=== PATIENT | female | born 1995 | race Caucasian/White ===

== ENCOUNTER 2016-08-18 15:45 | Emergency (ER) | payer BC, OTHER ==
[2016-08-18] MEDS ORDERED: ONDANSETRON 4MG/2ML VIAL (J2405) As Ordered ONE (18:12)
[2016-08-18] MEDS ORDERED: KETOROLAC 30 MG/ML VIAL (J1885) As Ordered ONE (18:12)
[2016-08-18 18:23] LABS: BASO % 0.5 % (0.0-1.0); EOS # 0.1 K/mm3 (0.0-0.50); EOS % 2.7 % (0.0-3.0); LARGE UNSTAINED CELL # 0.1 K/mm3 (0.0-0.4); LARGE UNSTAINED CELL % 1.7 % (0.0-4.0); LYMPH # 1.6 K/mm3 (1.5-6.5); MEAN CORPUSCULAR HEMOGLOBIN 29.8 pg (27.0-33.0); MEAN CORPUSCULAR HGB CONC 32.9 g/dl (32.0-36.5); MEAN CORPUSCULAR VOLUME 90.4 fl (80.0-96.0); MONO # 0.3 K/mm3 (0.0-0.8); MONO % 5.2 % (0.0-5.0); NEUTROPHILS # 3.2 K/mm3 (1.8-7.7); NEUTROPHILS % 59.9 % (36.0-66.0); PLATELET COUNT, AUTOMATED 167 k/mm3 (150-450); RED CELL DISTRIBUTION WIDTH 12.3 % (11.5-14.5); WHITE BLOOD COUNT 5.3 K/mm3 (4.0-10.0)
[2016-08-18 18:29] LABS: INR 0.86
[2016-08-18 18:44] LABS: CONTROL LINE HCG INT CTR LINE PRESENT
[2016-08-18 18:51] LABS: ALBUMIN 4.2 GM/DL (3.2-5.2); ALBUMIN/GLOBULIN RATIO 1.27 (1.00-1.93); ALKALINE PHOSPHATASE 89 U/L (45-117); ALT/SGPT 31 U/L (12-78); AMYLASE 74 U/L (25-115); ANION GAP 9 MEQ/L (8-16); AST/SGOT 24 U/L (15-37); BILIRUBIN,DIRECT < 0.1 MG/DL (0.0-0.2); BILIRUBIN,TOTAL 0.2 MG/DL (0.2-1.0); BLOOD UREA NITROGEN 17 MG/DL (7-18); CARBON DIOXIDE LEVEL 29 MEQ/L (21-32); CHLORIDE LEVEL 104 MEQ/L (98-107); CREATININE FOR GFR 0.83 MG/DL (0.55-1.02); GLUCOSE, FASTING 86 MG/DL (70-105); POTASSIUM SERUM 3.7 MEQ/L (3.5-5.1); SODIUM LEVEL 142 MEQ/L (136-145); TOTAL PROTEIN 7.5 GM/DL (6.4-8.2)
[2016-08-18] MEDS ORDERED: METOCLOPRAMIDE INJ 10MG/2ML VIAL (J2765) As Ordered ONE (19:12)
--- NOTE | 2016-08-18 19:16 | REP ---
CT of the brain without IV contrast: There are no comparisons. There is no hemorrhage. There is no edema, mass effect or midline shift. Ventricles are normal size and midline. There is mild mucosal thickening in the ethmoid sinuses. The visualized paranasal sinuses are otherwise unremarkable. Impression: Negative CT scan of the brain. There is evidence for mild ethmoid sinusitis. Signed by Amanuel Clinton MD 08/18/2016 07:07 P
--- NOTE | 2016-08-18 19:39 | REP ---
CT abdomen pelvis without IV or bowel contrast for renal colic: There are no comparison studies. There is no hydronephrosis or perinephric stranding. There are no renal, ureteral or bladder calculi. The visualized lung mast are unremarkable. The unenhanced hepatic parenchyma, gallbladder, pancreas and spleen are unremarkable. The adrenals, abdominal aorta, bowel and mesentery are unremarkable. Pelvis: The appendix is unremarkable. There is no ascites or adenopathy. The uterus and adnexa are unremarkable. The pelvic bowel loops are unremarkable. Impression: Essentially negative CT study of the abdomen and pelvis. Signed by Amanuel Clinton MD 08/18/2016 07:30 P
--- NOTE | 2016-08-18 20:33 | EDDOCDS ---
Nurse's Notes [facility] Name: Cathryn Swenson Age: 20 yrs Sex: Female : 1995 Arrival Date: 08/18/2016 Time: 15:45 Bed I1 / M1 Private MD: NO PRIMARY PHYSICIAN, . Diagnosis: Abdominal and pelvic pain Presentation: 08/18 16:04 Presenting complaint: Patient states: last night was getting woken up from sleep due to hs1 pain in left side. Passed out in car on way here per bystander. Diarrhea also a complaint for 3 days. Adult Sepsis Screening: The patient does not have new or worsening altered mentation. Patient's respiratory rate is less than 22. Systolic blood pressure is greater than 100. Patient has a qSOFA score of 0- Negative Sepsis Screen. Suicide/Homicide risk assessment- the patient denies having any suicidal and/or homicidal ideations and does not present with any other emotional, behavioral or mental health complaints. Status: The patient is a dependent. Transition of care: patient was not received from another setting of care. 16:04 Acuity: CONOR Level 3 hs1 16:04 Method Of Arrival: Walkin/Carried/Asstd hs1 Triage Assessment: 16:07 General: Appears in no apparent distress, Behavior is appropriate for age, cooperative. hs1 Pain: Location: scalp, anterior aspect of left lateral abdomen and abdomen diffusely Pain currently is 10 out of 10 on a pain scale. Pt Declines HIV testing. Neurological: Level of Consciousness is awake, alert, obeys commands. Respiratory: No deficits noted. Derm: No deficits noted. 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 none - PMHx: none; - Social history: Smoking status: Patient uses tobacco products, heavy tobacco smoker. No barriers to communication noted, The patient speaks fluent Palauan, Speaks appropriately for age. - Family history: Not pertinent. - : The pt / caregiver states he / she is not on anticoagulants. Home medication list is obtained from the patient. - Exposure Risk Screening:: None identified. Screenin:17 Screening information is obtained from the patient. Fall risk: No risks identified. ck1 Assistance ADL's: requires no assistance with activities of daily living. Abuse/DV Screen: The patient / caregiver reports he/she is: not in a situation that causes fear, pain or injury. Nutritional screening: No deficits noted. Advance Directives: Currently, there is no health care proxy. home support is adequate. Assessment: 18:17 General: Appears in no apparent distress, comfortable, Behavior is appropriate for age, ck1 cooperative. Pain: Location: left lower quadrant Pain currently is 8 out of 10 on a pain scale. Pain radiates to left flank. Neurological: Level of Consciousness is awake, alert, obeys commands, Oriented to person, place, time. Cardiovascular: Rhythm is regular Chest pain is denied. Respiratory: Respiratory effort is unlabored, Respiratory pattern is regular, symmetrical. GI: Reports diarrhea, Denies nausea, vomiting. Derm: Skin is intact, is healthy with good turgor, Skin is pink, warm & dry. 19:17 General: Appears in no apparent distress, comfortable, Behavior is cooperative, pt mlc watching tv. Pain: Pain currently is 9 out of 10 on a pain scale. Neurological: Level of Consciousness is awake, alert, Oriented to person, place, time, Reports headache. Respiratory: Airway is patent Respiratory effort is even, unlabored, Respiratory pattern is regular. GI: Abdomen is non- distended Bowel sounds present X 4 quads. Abd is soft and non tender X 4 quads. Derm: Skin is pink, warm & dry. 19:56 Reassessment: Patient appears in no apparent distress at this time. Patient states mlc symptoms have not improved. pt reports "pressure" on top of her head, rated 8/10. General: pt asking for IV to be taken out, pt advised against this. pillow placed under arm to relieve discomfort. . 20:30 General: Appears in no apparent distress, comfortable, Behavior is cooperative. Pain: mlc Pain currently is 8 out of 10 on a pain scale. Neurological: Level of Consciousness is awake, alert, Oriented to person, place, time. Respiratory: Airway is patent Respiratory effort is even, unlabored, Respiratory pattern is regular. Derm: Skin is pink, warm & dry. Vital Signs: 15:46 BP 135 / 72; Pulse 89; Resp 18; Temp 98.0; Pulse Ox 99% ; Weight 79.38 kg; Height 5 ft. elp 7 in. (170.18 cm); 20:30 BP 124 / 80; Pulse 70; Resp 18; Temp 96.6(T); Pulse Ox 99% on R/A; Pain 8/10; mlc 15:46 Body Mass Index 27.41 (79.38 kg, 170.18 cm) elp Vitals: 15:46 Log In Time: August 18, 2016 at 15:32. elp 18:19 Glucose Measurement D-stick deferred by provider. ck1 ED Course: 15:45 Patient visited by Jonna Palafox PCA. elp 15:45 Patient moved to Waiting elp 15:46 NO PRIMARY PHYSICIAN, . is Private Physician. elp 15:47 Patient visited by Jonna Palafox PCA. elp 15:47 Patient moved to Pre RCE elp 16:06 Triage Initiated hs1 17:14 Patient moved to Triage 2 dem1 17:17 Patient visited by Tejal Segundo RN. mk4 18:00 [facility] ke 18:00 Patient visited by Vazquez Aparicio FNP. ke 18:00 Patient visited by Vazquez Aparicio FNP. ke 18:08 Patient moved to I1 / M1 mk4 18:11 Urinalysis Sent. dem1 18:11 Urine Culture Sent. dem1 18:17 The patient / caregiver is instructed regarding the plan of care and ED course. ck1 18:17 Amylase Sent. ck1 18:17 Basic Metabolic Profile Sent. ck1 18:17 CBC with Diff Sent. ck1 18:17 HCG,Serum Qualitative Sent. ck1 18:17 Lipase Sent. ck1 18:17 Liver Profile Sent. ck1 18:17 Prothrombin Time Profile\\E\\INR Sent. ck1 18:17 Inserted saline lock: 20 gauge in right antecubital area and blood collected. The ck1 patient tolerated the procedure well. 18:30 Patient visited by Denia Beckham RN. ck1 18:55 Patient visited by Vazquez Aparicio FNP. ke 19:17 [facility] Payment Agreement was scanned into [employer] and attached to record. zo 19:18 Patient visited by Brittani Hodge,YOLIS. mlc 19:58 Patient visited by Brittani Hodge,YOLIS. mlc 20:05 CT Head Without Contrast Returned. EDMS 20:05 CT ABD & PELVIS: No Contrast Returned. EDMS 20:14 [facility] is Referral Physician. ke 20:30 Discontinued IV lock intact, bleeding controlled, pressure dressing applied, No mlc redness/swelling at site. No procedures done that require assistance. Administered Medications: 18:19 Drug: NS 0.9% 1000 ml [sodium chloride 0.9 % intravenous solution] Route: IV; Rate: 100 mcp mL/hr; Site: right antecubital; 18:19 Drug: Ondansetron 4 mg [ondansetron HCl 2 mg/mL intravenous solution (2 mL)] Route: mcp IVP; Site: right antecubital; 18:19 Drug: ketorolac 30 mg [ketorolac 30 mg/mL (1 mL) injection solution (1 mL)] Route: IVP; mcp Site: right antecubital; 19:17 Drug: Metoclopramide 10 mg [metoclopramide 5 mg/mL injection solution] Route: IV; Rate: mlc 40 mg/hr; Infused Over: 15 mins; Site: right antecubital; Order Results: Lab Order: Amylase; SPEC'M 08/18/16 18:16 Test: AMYLASE; Value: 74; Range: 25-115; Units: U/L; Status: F Lab Order: Basic Metabolic Profile; SPEC'M 08/18/16 18:16 Test: GLUCOSE, FASTING; Value: 86; Range: 70-105; Units: MG/DL; Status: F Test: BLOOD UREA NITROGEN; Value: 17; Range: 7-18; Units: MG/DL; Status: F Test: CREATININE FOR GFR; Value: 0.83; Range: 0.55-1.02; Units: MG/DL; Status: F Test: SODIUM LEVEL; Value: 142; Range: 136-145; Units: MEQ/L; Status: F Test: POTASSIUM SERUM; Value: 3.7; Range: 3.5-5.1; Units: MEQ/L; Status: F Test: CHLORIDE LEVEL; Value: 104; Range: 98-107; Units: MEQ/L; Status: F Test: CARBON DIOXIDE LEVEL; Value: 29; Range: 21-32; Units: MEQ/L; Status: F Test: ANION GAP; Value: 9; Range: 8-16; Units: MEQ/L; Status: F Test: CALCIUM LEVEL; Value: 9.0; Range: 8.5-10.1; Units: MG/DL; Status: F Lab Order: CBC with Diff; SPEC'M 08/18/16 18:16 Test: WHITE BLOOD COUNT; Value: 5.3; Range: 4.0-10.0; Units: K/mm3; Status: F Test: RED BLOOD COUNT; Value: 4.57; Range: 4.00-5.40; Units: M/mm3; Status: F Test: HEMOGLOBIN; Value: 13.6; Range: 12.0-16.0; Units: g/dl; Status: F Test: HEMATOCRIT; Value: 41.3; Range: 36.0-47.0; Units: %; Status: F Test: MEAN CORPUSCULAR VOLUME; Value: 90.4; Range: 80.0-96.0; Units: fl; Status: F Test: MEAN CORPUSCULAR HEMOGLOBIN; Value: 29.8; Range: 27.0-33.0; Units: pg; Status: F Test: MEAN CORPUSCULAR HGB CONC; Value: 32.9; Range: 32.0-36.5; Units: g/dl; Status: F Test: RED CELL DISTRIBUTION WIDTH; Value: 12.3; Range: 11.5-14.5; Units: %; Status: F Test: PLATELET COUNT, AUTOMATED; Value: 167; Range: 150-450; Units: k/mm3; Status: F Test: NEUTROPHILS %; Value: 59.9; Range: 36.0-66.0; Units: %; Status: F Test: LYMPH %; Value: 30.0; Range: 24.0-44.0; Units: %; Status: F Test: MONO %; Value: 5.2; Range: 0.0-5.0; Abnormal: Above high normal; Units: %; Status: F Test: EOS %; Value: 2.7; Range: 0.0-3.0; Units: %; Status: F Test: BASO %; Value: 0.5; Range: 0.0-1.0; Units: %; Status: F Test: LARGE UNSTAINED CELL %; Value: 1.7; Range: 0.0-4.0; Units: %; Status: F Test: NEUTROPHILS #; Value: 3.2; Range: 1.8-7.7; Units: K/mm3; Status: F Test: LYMPH #; Value: 1.6; Range: 1.5-6.5; Units: K/mm3; Status: F Test: MONO #; Value: 0.3; Range: 0.0-0.8; Units: K/mm3; Status: F Test: EOS #; Value: 0.1; Range: 0.0-0.50; Units: K/mm3; Status: F Test: BASO #; Value: 0.0; Range: 0.0-0.2; Units: K/mm3; Status: F Test: LARGE UNSTAINED CELL #; Value: 0.1; Range: 0.0-0.4; Units: K/mm3; Status: F Lab Order: HCG,Serum Qualitative; [facility] 08/18/16 18:16 Test: HCG, SERUM QUALITATIVE; Value: NEGATIVE; Range: NEGATIVE; Status: F Lab Order: Lipase; [facility] 08/18/16 18:16 Test: LIPASE; Value: 150; Range: 73-393; Units: U/L; Status: F Lab Order: Liver Profile; [facility] 08/18/16 18:16 Test: AST/SGOT; Value: 24; Range: 15-37; Units: U/L; Status: F Test: ALT/SGPT; Value: 31; Range: 12-78; Units: U/L; Status: F Test: ALKALINE PHOSPHATASE; Value: 89; Range: 45-117; Units: U/L; Status: F Test: BILIRUBIN,TOTAL; Value: 0.2; Range: 0.2-1.0; Units: MG/DL; Status: F Test: BILIRUBIN,DIRECT; Value: < 0.1; Range: 0.0-0.2; Units: MG/DL; Status: F Test: TOTAL PROTEIN; Value: 7.5; Range: 6.4-8.2; Units: GM/DL; Status: F Test: ALBUMIN; Value: 4.2; Range: 3.2-5.2; Units: GM/DL; Status: F Test: ALBUMIN/GLOBULIN RATIO; Value: 1.27; Range: 1.00-1.93; Status: F Lab Order: Prothrombin Time Profile\\E\\INR; [facility] 08/18/16 18:16 Test: PROTHROMBIN TIME; Value: 11.8; Range: 12.3-14.5; Abnormal: Below low normal; Units: SECONDS; Status: F Test: INR; Value: 0.86; Status: F Test Note: ; THERAPUTIC HUMAN INR VALUES INDICATIONS NORMAL RANGES PROPHYLAXIS/TREATMENT OF: VENOUS THROMBOSIS 2.0-3.0 PULMONARY EMBOLISM 2.0-3.0 PREVENTION OF SYSTEMIC EMBOLISM FROM: TISSUE HEART VALVES 2.0-3.0 ACUTE MYOCARDIAL INFARCTION 2.0-3.0 VALVULAR HEART DISEASE 2.0-3.0 ATRIAL FIBRILLATION 2.0-3.0 MECHANICAL VALVES(HIGH RISK) 2.5-3.5 RECURRENT MYOCARDIAL INFARCTION 2.5-3.5 Lab Order: Urinalysis; SPEC'M 08/18/16 17:15 Test: APPEARANCE, URINE; Value: CLEAR; Range: CLEAR; Status: F Test: COLOR, URINE; Value: YELLOW; Range: YELLOW; Status: F Test: PH,URINE; Value: 6.0; Range: 5.0-9.0; Units: UNITS; Status: F Test: SPECIFIC GRAVITY URINE AUTO; Value: 1.018; Range: 1.002-1.035; Status: F Test: PROTEIN, URINE AUTO; Value: NEGATIVE; Range: NEGATIVE; Units: mg/dL; Status: F Test: GLUCOSE, URINE (UA) AUTO; Value: NEGATIVE; Range: NEGATIVE; Units: mg/dL; Status: F Test: KETONE, URINE AUTO; Value: NEGATIVE; Range: NEGATIVE; Units: mg/dL; Status: F Test: UROBILINOGEN, URINE AUTO; Value: 0.2; Range: 0.0-2.0; Units: mg/dL; Status: F Test: BILIRUBIN, URINE AUTO; Value: NEGATIVE; Range: NEGATIVE; Status: F Test: NITRITE, URINE AUTO; Value: NEGATIVE; Range: NEGATIVE; Status: F Test: LEUKOCYTE ESTERASE, URINE AUTO; Value: NEGATIVE; Range: NEGATIVE; Status: F Test: BLOOD, URINE BLOOD; Value: 1+; Range: NEGATIVE; Abnormal: Above high normal; Status: F Test: WBC, URINE AUTO; Value: 0; Range: 0-3; Units: /HPF; Status: F Test: RBC, URINE AUTO; Value: 0; Range: 0-3; Units: /HPF; Status: F Test: BACTERIA, URINE AUTO; Value: NEGATIVE; Range: NEGATIVE; Status: F Test: SQUAMOUS EPITHELIAL CELL UR AU; Value: 0; Range: 0-6; Units: /HPF; Status: F Test: MUCUS, URINE; Value: SMALL; Range: NEGATIVE; Status: F Test: HYALINE CAST, URINE AUTO; Value: 0; Range: 0-1; Units: /LPF; Status: F Radiology Order: CT ABD & PELVIS: No Contrast Test: CT ABD & PELVIS: No Contrast REASON FOR EXAMINATION: Renal colic; CT abdomen pelvis without IV or bowel contrast for renal colic:; ; There are no comparison studies.; ; There is no hydronephrosis or perinephric stranding. There are no renal,; ureteral or bladder calculi.; ; The visualized lung mast are unremarkable.; ; The unenhanced hepatic parenchyma, gallbladder, pancreas and spleen are; unremarkable. The adrenals, abdominal aorta, bowel and mesentery are; unremarkable.; ; Pelvis:; ; The appendix is unremarkable. There is no ascites or adenopathy. The uterus and; adnexa are unremarkable. The pelvic bowel loops are unremarkable.; ; Impression:; ; Essentially negative CT study of the abdomen and pelvis.; ; ; Signed by; Amanuel Clinton MD 08/18/2016 07:30 P; Radiology Order: CT Head Without Contrast Test: CT Head Without Contrast REASON FOR EXAMINATION: waters; CT of the brain without IV contrast:; ; There are no comparisons.; ; There is no hemorrhage. There is no edema, mass effect or midline shift.; Ventricles are normal size and midline.; ; There is mild mucosal thickening in the ethmoid sinuses. The visualized; paranasal sinuses are otherwise unremarkable.; ; Impression:; ; Negative CT scan of the brain. There is evidence for mild ethmoid sinusitis.; ; ; Signed by; Amanuel Clinton MD 08/18/2016 07:07 P; Outcome: 19:17 CT Study completed. mlc 20:14 Discharge ordered by Provider. ke 20:30 Discharge Assessment: Patient awake, alert and oriented x 3. No cognitive and/or mlc functional deficits noted. Patient verbalized understanding of disposition instructions. patient administered narcotics - no. The following High Risk Discharge criteria are identified: None. Discharged to home ambulatory, with significant other. Condition: good Condition: stable. Discharge instructions given to patient, Instructed on discharge instructions, follow up and referral plans. medication usage, Demonstrated understanding of instructions, medications, Pt was receptive of discharge instructions/ teaching. Prescriptions given X 2. Property sent home with patient. 20:32 Patient left the ED. mlc Signatures: Dispatcher [employer] EDMarlene Lux, RN RN Vazquez Chávez, MANAGER RETIREMENT MANAGER RETIREMENT Denia MayberryRN RN ck1 Eddy Gallagher Hannah RN RN hs1 Petra Reilly1 Jonna Palafox, JACQUELIN MUD ENGINEER elTejal Tristan RN RN mk4 Brittani HodgeRN RN mlc MTDD
--- NOTE | 2016-08-18 20:33 | EDDOCDS ---
Physician Documentation [facility] Name: Cathryn Swenson Age: 20 yrs Sex: Female : 1995 Arrival Date: 08/18/2016 Time: 15:45 Bed I1 / M1 Private MD: NO PRIMARY PHYSICIAN, . Disposition: 08/18/16 20:14 Discharged to Home/Self Care. Impression: Abdominal and pelvic pain. - Condition is Stable. - Discharge Instructions: Abdominal Pain, Adult. - Prescriptions for Naprosyn 500 mg Oral Tablet - take 1 tablet by ORAL route 2 times per day take with food; 30 tablet. Zofran 4 mg Oral Tablet - take 1 tablet by ORAL route 4 times per day As needed; 10 tablet. - Medication Reconciliation, Local Pharmacy Hours form. - [facility] up: [facility]; When: Call to arrange an appointment; Reason: Recheck today's complaints, Continuance of care. - Problem is an ongoing problem. - Symptoms are unchanged. Historical: - Allergies: no known allergies; - Home Meds: 1. none - PMHx: none; - Social history: Smoking status: Patient uses tobacco products, heavy tobacco smoker. No barriers to communication noted, The patient speaks fluent [place], Speaks appropriately for age. - Family history: Not pertinent. - : The pt / caregiver states he / she is not on anticoagulants. Home medication list is obtained from the patient. - Exposure Risk Screening:: None identified. 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 7 in. (170.18 cm); 20:30 BP 124 / 80; Pulse 70; Resp 18; Temp 96.6(T); Pulse Ox 99% on R/A; Pain 8/10; mlc 15:46 Body Mass Index 27.41 (79.38 kg, 170.18 cm) elp MDM: 18:07 NS 0.9% 1000 ml IV at 100 mL/hr continuous ordered. ke 18:07 Ondansetron 4 mg IVP once ordered. ke 18:07 ketorolac 30 mg IVP once ordered. ke 18:07 IV Saline Lock ordered. ke 18:07 Undress patient appropriately for examination ordered. ke 18:08 Amylase Ordered. EDMS 18:08 Basic Metabolic Profile Ordered. EDMS 18:08 CBC with Diff Ordered. EDMS 18:08 HCG,Serum Qualitative Ordered. EDMS 18:08 Lipase Ordered. EDMS 18:08 Liver Profile Ordered. EDMS 18:08 Prothrombin Time Profile\E\INR Ordered. EDMS 18:08 Urinalysis Ordered. EDMS 18:08 Urine Culture Ordered. EDMS 18:09 CT ABD & PELVIS: No Contrast Ordered. EDMS 18:09 NOTHING BY MOUTH+DIET ordered. EDMS 18:49 Financial registration complete. zo 18:53 CBC with Diff Reviewed. ke 18:53 Prothrombin Time Profile\E\INR Reviewed. ke 18:53 Urinalysis Reviewed. ke 18:53 Amylase Reviewed. ke 18:53 Basic Metabolic Profile Reviewed. ke 18:53 HCG,Serum Qualitative Reviewed. ke 18:53 Lipase Reviewed. ke 18:53 Liver Profile Reviewed. ke 18:55 Metoclopramide 10 mg IV at 40 mg/hr once over 15 mins ordered. ke 18:57 CT Head Without Contrast Ordered. EDMS 19:17 [facility] Payment Agreement was scanned into [employer] and attached to record. zo Administered Medications: 18:19 Drug: NS 0.9% 1000 ml [sodium chloride 0.9 % intravenous solution] Route: IV; Rate: 100 mcp mL/hr; Site: right antecubital; 18:19 Drug: Ondansetron 4 mg [ondansetron HCl 2 mg/mL intravenous solution (2 mL)] Route: mcp IVP; Site: right antecubital; 18:19 Drug: ketorolac 30 mg [ketorolac 30 mg/mL (1 mL) injection solution (1 mL)] Route: IVP; [facility] Site: right antecubital; 19:17 Drug: Metoclopramide 10 mg [metoclopramide 5 mg/mL injection solution] Route: IV; Rate: mlc 40 mg/hr; Infused Over: 15 mins; Site: right antecubital; Signatures: Dispatcher [employer] EDMS Vazquez Aparicio, RESEARCH SPEC RESEARCH SPEC Denia Mayberry RN RN ck1 Eddy Gallagher Hannah, RN RN hs1 Brittani Hodge RN RN mlc Peters, Mary RN [facility] The chart was reviewed and I authenticate all verbal orders and agree with the evaluation and treatment provided.Attachments: 19:17 [facility] Payment Agreement zo MTDD
--- NOTE | 2016-08-20 21:33 | EDDOCDS ---
Nurse's Notes [facility] Name: Cathryn Swenson Age: 20 yrs Sex: Female : 1995 Arrival Date: 08/18/2016 Time: 15:45 Bed I1 / M1 Private MD: NO PRIMARY PHYSICIAN, . Diagnosis: Abdominal and pelvic pain Presentation: 08/18 16:04 Presenting complaint: Patient states: last night was getting woken up from sleep due to hs1 pain in left side. Passed out in car on way here per bystander. Diarrhea also a complaint for 3 days. Adult Sepsis Screening: The patient does not have new or worsening altered mentation. Patient's respiratory rate is less than 22. Systolic blood pressure is greater than 100. Patient has a qSOFA score of 0- Negative Sepsis Screen. Suicide/Homicide risk assessment- the patient denies having any suicidal and/or homicidal ideations and does not present with any other emotional, behavioral or mental health complaints. Status: The patient is a dependent. Transition of care: patient was not received from another setting of care. 16:04 Acuity: CONOR Level 3 hs1 16:04 Method Of Arrival: Walkin/Carried/Asstd hs1 Triage Assessment: 16:07 General: Appears in no apparent distress, Behavior is appropriate for age, cooperative. hs1 Pain: Location: scalp, anterior aspect of left lateral abdomen and abdomen diffusely Pain currently is 10 out of 10 on a pain scale. Pt Declines HIV testing. Neurological: Level of Consciousness is awake, alert, obeys commands. Respiratory: No deficits noted. Derm: No deficits noted. DIRECTOR OF CONTENT MARKETING: 16:08 LMP 08/13/2016 hs1 Historical: - Allergies: no known allergies; - Home Meds: 1. none - PMHx: none; - Social history: Smoking status: Patient uses tobacco products, heavy tobacco smoker. No barriers to communication noted, The patient speaks fluent Uruguayan, Speaks appropriately for age. - Family history: Not pertinent. - : The pt / caregiver states he / she is not on anticoagulants. Home medication list is obtained from the patient. - Exposure Risk Screening:: None identified. Screenin:17 Screening information is obtained from the patient. Fall risk: No risks identified. ck1 Assistance ADL's: requires no assistance with activities of daily living. Abuse/DV Screen: The patient / caregiver reports he/she is: not in a situation that causes fear, pain or injury. Nutritional screening: No deficits noted. Advance Directives: Currently, there is no health care proxy. home support is adequate. Assessment: 18:17 General: Appears in no apparent distress, comfortable, Behavior is appropriate for age, ck1 cooperative. Pain: Location: left lower quadrant Pain currently is 8 out of 10 on a pain scale. Pain radiates to left flank. Neurological: Level of Consciousness is awake, alert, obeys commands, Oriented to person, place, time. Cardiovascular: Rhythm is regular Chest pain is denied. Respiratory: Respiratory effort is unlabored, Respiratory pattern is regular, symmetrical. GI: Reports diarrhea, Denies nausea, vomiting. Derm: Skin is intact, is healthy with good turgor, Skin is pink, warm & dry. 19:17 General: Appears in no apparent distress, comfortable, Behavior is cooperative, pt mlc watching tv. Pain: Pain currently is 9 out of 10 on a pain scale. Neurological: Level of Consciousness is awake, alert, Oriented to person, place, time, Reports headache. Respiratory: Airway is patent Respiratory effort is even, unlabored, Respiratory pattern is regular. GI: Abdomen is non- distended Bowel sounds present X 4 quads. Abd is soft and non tender X 4 quads. Derm: Skin is pink, warm & dry. 19:56 Reassessment: Patient appears in no apparent distress at this time. Patient states mlc symptoms have not improved. pt reports "pressure" on top of her head, rated 8/10. General: pt asking for IV to be taken out, pt advised against this. pillow placed under arm to relieve discomfort. . 20:30 General: Appears in no apparent distress, comfortable, Behavior is cooperative. Pain: mlc Pain currently is 8 out of 10 on a pain scale. Neurological: Level of Consciousness is awake, alert, Oriented to person, place, time. Respiratory: Airway is patent Respiratory effort is even, unlabored, Respiratory pattern is regular. Derm: Skin is pink, warm & dry. Vital Signs: 15:46 BP 135 / 72; Pulse 89; Resp 18; Temp 98.0; Pulse Ox 99% ; Weight 79.38 kg; Height 5 ft. elp 7 in. (170.18 cm); 20:30 BP 124 / 80; Pulse 70; Resp 18; Temp 96.6(T); Pulse Ox 99% on R/A; Pain 8/10; mlc 15:46 Body Mass Index 27.41 (79.38 kg, 170.18 cm) elp Vitals: 15:46 Log In Time: August 18, 2016 at 15:32. elp 18:19 Glucose Measurement D-stick deferred by provider. ck1 ED Course: 15:45 Patient visited by Jonna Palafox PCA. elp 15:45 Patient moved to Waiting elp 15:46 NO PRIMARY PHYSICIAN, . is Private Physician. elp 15:47 Patient visited by Jonna Palafox PCA. elp 15:47 Patient moved to Pre RCE elp 16:06 Triage Initiated hs1 17:14 Patient moved to Triage 2 dem1 17:17 Patient visited by Tejal Segundo RN. mk4 18:00 [facility] ke 18:00 Patient visited by Vazquez Aparicio FNP. ke 18:00 Patient visited by Vazquez Aparicio FNP. ke 18:08 Patient moved to I1 / M1 mk4 18:11 Urinalysis Sent. dem1 18:11 Urine Culture Sent. dem1 18:17 The patient / caregiver is instructed regarding the plan of care and ED course. ck1 18:17 Amylase Sent. ck1 18:17 Basic Metabolic Profile Sent. ck1 18:17 CBC with Diff Sent. ck1 18:17 HCG,Serum Qualitative Sent. ck1 18:17 Lipase Sent. ck1 18:17 Liver Profile Sent. ck1 18:17 Prothrombin Time Profile\\E\\INR Sent. ck1 18:17 Inserted saline lock: 20 gauge in right antecubital area and blood collected. The ck1 patient tolerated the procedure well. 18:30 Patient visited by Denia Beckham RN. ck1 18:55 Patient visited by Vazquez Aparicio FNP. ke 19:17 [facility] [place] Agreement was scanned into [employer] and attached to record. zo 19:18 Patient visited by Brittani Hodge,YOLIS. mlc 19:58 Patient visited by Brittani Hodge,YOLIS. mlc 20:05 CT Head Without Contrast Returned. EDMS 20:05 CT ABD & PELVIS: No Contrast Returned. EDMS 20:14 [facility] is Referral Physician. ke 20:30 Discontinued IV lock intact, bleeding controlled, pressure dressing applied, No mlc redness/swelling at site. No procedures done that require assistance. 08/19 14:19 T-Sheet-- Draft Copy was scanned into [employer] and attached to record. gb Administered Medications: 08/18 18:19 Drug: NS 0.9% 1000 ml [sodium chloride 0.9 % intravenous solution] Route: IV; Rate: 100 mcp mL/hr; Site: right antecubital; 18:19 Drug: Ondansetron 4 mg [ondansetron HCl 2 mg/mL intravenous solution (2 mL)] Route: mcp IVP; Site: right antecubital; 18:19 Drug: ketorolac 30 mg [ketorolac 30 mg/mL (1 mL) injection solution (1 mL)] Route: IVP; mcp Site: right antecubital; 19:17 Drug: Metoclopramide 10 mg [metoclopramide 5 mg/mL injection solution] Route: IV; Rate: mlc 40 mg/hr; Infused Over: 15 mins; Site: right antecubital; Order Results: Lab Order: Amylase; SPEC'M 08/18/16 18:16 Test: AMYLASE; Value: 74; Range: 25-115; Units: U/L; Status: F Lab Order: Basic Metabolic Profile; SPEC'M 08/18/16 18:16 Test: GLUCOSE, FASTING; Value: 86; Range: 70-105; Units: MG/DL; Status: F Test: BLOOD UREA NITROGEN; Value: 17; Range: 7-18; Units: MG/DL; Status: F Test: CREATININE FOR GFR; Value: 0.83; Range: 0.55-1.02; Units: MG/DL; Status: F Test: SODIUM LEVEL; Value: 142; Range: 136-145; Units: MEQ/L; Status: F Test: POTASSIUM SERUM; Value: 3.7; Range: 3.5-5.1; Units: MEQ/L; Status: F Test: CHLORIDE LEVEL; Value: 104; Range: 98-107; Units: MEQ/L; Status: F Test: CARBON DIOXIDE LEVEL; Value: 29; Range: 21-32; Units: MEQ/L; Status: F Test: ANION GAP; Value: 9; Range: 8-16; Units: MEQ/L; Status: F Test: CALCIUM LEVEL; Value: 9.0; Range: 8.5-10.1; Units: MG/DL; Status: F Lab Order: CBC with Diff; SPEC'M 08/18/16 18:16 Test: WHITE BLOOD COUNT; Value: 5.3; Range: 4.0-10.0; Units: K/mm3; Status: F Test: RED BLOOD COUNT; Value: 4.57; Range: 4.00-5.40; Units: M/mm3; Status: F Test: HEMOGLOBIN; Value: 13.6; Range: 12.0-16.0; Units: g/dl; Status: F Test: HEMATOCRIT; Value: 41.3; Range: 36.0-47.0; Units: %; Status: F Test: MEAN CORPUSCULAR VOLUME; Value: 90.4; Range: 80.0-96.0; Units: fl; Status: F Test: MEAN CORPUSCULAR HEMOGLOBIN; Value: 29.8; Range: 27.0-33.0; Units: pg; Status: F Test: MEAN CORPUSCULAR HGB CONC; Value: 32.9; Range: 32.0-36.5; Units: g/dl; Status: F Test: RED CELL DISTRIBUTION WIDTH; Value: 12.3; Range: 11.5-14.5; Units: %; Status: F Test: PLATELET COUNT, AUTOMATED; Value: 167; Range: 150-450; Units: k/mm3; Status: F Test: NEUTROPHILS %; Value: 59.9; Range: 36.0-66.0; Units: %; Status: F Test: LYMPH %; Value: 30.0; Range: 24.0-44.0; Units: %; Status: F Test: MONO %; Value: 5.2; Range: 0.0-5.0; Abnormal: Above high normal; Units: %; Status: F Test: EOS %; Value: 2.7; Range: 0.0-3.0; Units: %; Status: F Test: BASO %; Value: 0.5; Range: 0.0-1.0; Units: %; Status: F Test: LARGE UNSTAINED CELL %; Value: 1.7; Range: 0.0-4.0; Units: %; Status: F Test: NEUTROPHILS #; Value: 3.2; Range: 1.8-7.7; Units: K/mm3; Status: F Test: LYMPH #; Value: 1.6; Range: 1.5-6.5; Units: K/mm3; Status: F Test: MONO #; Value: 0.3; Range: 0.0-0.8; Units: K/mm3; Status: F Test: EOS #; Value: 0.1; Range: 0.0-0.50; Units: K/mm3; Status: F Test: BASO #; Value: 0.0; Range: 0.0-0.2; Units: K/mm3; Status: F Test: LARGE UNSTAINED CELL #; Value: 0.1; Range: 0.0-0.4; Units: K/mm3; Status: F Lab Order: HCG,Serum Qualitative; [facility] 08/18/16 18:16 Test: HCG, SERUM QUALITATIVE; Value: NEGATIVE; Range: NEGATIVE; Status: F Lab Order: Lipase; [facility] 08/18/16 18:16 Test: LIPASE; Value: 150; Range: 73-393; Units: U/L; Status: F Lab Order: Liver Profile; [facility] 08/18/16 18:16 Test: AST/SGOT; Value: 24; Range: 15-37; Units: U/L; Status: F Test: ALT/SGPT; Value: 31; Range: 12-78; Units: U/L; Status: F Test: ALKALINE PHOSPHATASE; Value: 89; Range: 45-117; Units: U/L; Status: F Test: BILIRUBIN,TOTAL; Value: 0.2; Range: 0.2-1.0; Units: MG/DL; Status: F Test: BILIRUBIN,DIRECT; Value: < 0.1; Range: 0.0-0.2; Units: MG/DL; Status: F Test: TOTAL PROTEIN; Value: 7.5; Range: 6.4-8.2; Units: GM/DL; Status: F Test: ALBUMIN; Value: 4.2; Range: 3.2-5.2; Units: GM/DL; Status: F Test: ALBUMIN/GLOBULIN RATIO; Value: 1.27; Range: 1.00-1.93; Status: F Lab Order: Prothrombin Time Profile\\E\\INR; SPEC'M 08/18/16 18:16 Test: PROTHROMBIN TIME; Value: 11.8; Range: 12.3-14.5; Abnormal: Below low normal; Units: SECONDS; Status: F Test: INR; Value: 0.86; Status: F Test Note: ; THERAPUTIC HUMAN INR VALUES INDICATIONS NORMAL RANGES PROPHYLAXIS/TREATMENT OF: VENOUS THROMBOSIS 2.0-3.0 PULMONARY EMBOLISM 2.0-3.0 PREVENTION OF SYSTEMIC EMBOLISM FROM: TISSUE HEART VALVES 2.0-3.0 ACUTE MYOCARDIAL INFARCTION 2.0-3.0 VALVULAR HEART DISEASE 2.0-3.0 ATRIAL FIBRILLATION 2.0-3.0 MECHANICAL VALVES(HIGH RISK) 2.5-3.5 RECURRENT MYOCARDIAL INFARCTION 2.5-3.5 Lab Order: Urinalysis; SPEC'M 08/18/16 17:15 Test: APPEARANCE, URINE; Value: CLEAR; Range: CLEAR; Status: F Test: COLOR, URINE; Value: YELLOW; Range: YELLOW; Status: F Test: PH,URINE; Value: 6.0; Range: 5.0-9.0; Units: UNITS; Status: F Test: SPECIFIC GRAVITY URINE AUTO; Value: 1.018; Range: 1.002-1.035; Status: F Test: PROTEIN, URINE AUTO; Value: NEGATIVE; Range: NEGATIVE; Units: mg/dL; Status: F Test: GLUCOSE, URINE (UA) AUTO; Value: NEGATIVE; Range: NEGATIVE; Units: mg/dL; Status: F Test: KETONE, URINE AUTO; Value: NEGATIVE; Range: NEGATIVE; Units: mg/dL; Status: F Test: UROBILINOGEN, URINE AUTO; Value: 0.2; Range: 0.0-2.0; Units: mg/dL; Status: F Test: BILIRUBIN, URINE AUTO; Value: NEGATIVE; Range: NEGATIVE; Status: F Test: NITRITE, URINE AUTO; Value: NEGATIVE; Range: NEGATIVE; Status: F Test: LEUKOCYTE ESTERASE, URINE AUTO; Value: NEGATIVE; Range: NEGATIVE; Status: F Test: BLOOD, URINE BLOOD; Value: 1+; Range: NEGATIVE; Abnormal: Above high normal; Status: F Test: WBC, URINE AUTO; Value: 0; Range: 0-3; Units: /HPF; Status: F Test: RBC, URINE AUTO; Value: 0; Range: 0-3; Units: /HPF; Status: F Test: BACTERIA, URINE AUTO; Value: NEGATIVE; Range: NEGATIVE; Status: F Test: SQUAMOUS EPITHELIAL CELL UR AU; Value: 0; Range: 0-6; Units: /HPF; Status: F Test: MUCUS, URINE; Value: SMALL; Range: NEGATIVE; Status: F Test: HYALINE CAST, URINE AUTO; Value: 0; Range: 0-1; Units: /LPF; Status: F Lab Order: Urine Culture; SPEC'M 08/18/16 17:15 Test: URINE CULTURE; Value: <EXTERNAL COMMENT eCWMed> FULL REPORT IN LAB NOTES (eCW and Medent).; Status: F Test: URINE CULTURE; Value: URINE CULTURE RESULT NO GROWTH; Status: F Radiology Order: CT ABD & PELVIS: No Contrast Test: CT ABD & PELVIS: No Contrast REASON FOR EXAMINATION: Renal colic; CT abdomen pelvis without IV or bowel contrast for renal colic:; ; There are no comparison studies.; ; There is no hydronephrosis or perinephric stranding. There are no renal,; ureteral or bladder calculi.; ; The visualized lung mast are unremarkable.; ; The unenhanced hepatic parenchyma, gallbladder, pancreas and spleen are; unremarkable. The adrenals, abdominal aorta, bowel and mesentery are; unremarkable.; ; Pelvis:; ; The appendix is unremarkable. There is no ascites or adenopathy. The uterus and; adnexa are unremarkable. The pelvic bowel loops are unremarkable.; ; Impression:; ; Essentially negative CT study of the abdomen and pelvis.; ; ; Signed by; Amanuel Clinton MD 08/18/2016 07:30 P; Radiology Order: CT Head Without Contrast Test: CT Head Without Contrast REASON FOR EXAMINATION: waters; CT of the brain without IV contrast:; ; There are no comparisons.; ; There is no hemorrhage. There is no edema, mass effect or midline shift.; Ventricles are normal size and midline.; ; There is mild mucosal thickening in the ethmoid sinuses. The visualized; paranasal sinuses are otherwise unremarkable.; ; Impression:; ; Negative CT scan of the brain. There is evidence for mild ethmoid sinusitis.; ; ; Signed by; Amanuel Clinton MD 08/18/2016 07:07 P; Outcome: 19:17 CT Study completed. mlc 20:14 Discharge ordered by Provider. ke 20:30 Discharge Assessment: Patient awake, alert and oriented x 3. No cognitive and/or mlc functional deficits noted. Patient verbalized understanding of disposition instructions. patient administered narcotics - no. The following High Risk Discharge criteria are identified: None. Discharged to home ambulatory, with significant other. Condition: good Condition: stable. Discharge instructions given to patient, Instructed on discharge instructions, follow up and referral plans. medication usage, Demonstrated understanding of instructions, medications, Pt was receptive of discharge instructions/ teaching. Prescriptions given X 2. Property sent home with patient. 20:32 Patient left the ED. mlc Signatures: Dispatcher [employer] EDMS Marlene Valerio, RN RN La Nena Pryor, Joey Reg Vazquez Phillip, NON EMERGENCY SERVICES AMBULANCE DRIVER NON EMERGENCY SERVICES AMBULANCE DRIVER Denia MayberryRN RN ck1 Eddy Gallagher Hannah RN RN hs1 Petra Reilly dem1 Jonna Palafox, CROSSING SUPERVISOR CROSSING SUPERVISOR Tejal Jeffers RN RN mk4 Brittani Hodge,RN RN mlc Chart Complete EDUAR
--- NOTE | 2016-08-20 21:33 | EDDOCDS ---
Physician Documentation [facility] Name: Cathryn Swenson Age: 20 yrs Sex: Female : 1995 Arrival Date: 08/18/2016 Time: 15:45 Bed I1 / M1 Private MD: NO PRIMARY PHYSICIAN, . Disposition: 08/18/16 20:14 Discharged to Home/Self Care. Impression: Abdominal and pelvic pain. - Condition is Stable. - Discharge Instructions: Abdominal Pain, Adult. - Prescriptions for Naprosyn 500 mg Oral Tablet - take 1 tablet by ORAL route 2 times per day take with food; 30 tablet. Zofran 4 mg Oral Tablet - take 1 tablet by ORAL route 4 times per day As needed; 10 tablet. - Medication Reconciliation, Local Pharmacy Hours form. - [facility]; When: Call to arrange an appointment; Reason: Recheck today's complaints, Continuance of care. - Problem is an ongoing problem. - Symptoms are unchanged. Historical: - Allergies: no known allergies; - Home Meds: 1. none - PMHx: none; - Social history: Smoking status: Patient uses tobacco products, heavy tobacco smoker. No barriers to communication noted, The patient speaks fluent Peruvian, Speaks appropriately for age. - Family history: Not pertinent. - : The pt / caregiver states he / she is not on anticoagulants. Home medication list is obtained from the patient. - Exposure Risk Screening:: None identified. CIVIL GEOTECHNICAL ENGINEER: 08/18 16:08 LMP 08/13/2016 hs1 Vital Signs: 15:46 BP 135 / 72; Pulse 89; Resp 18; Temp 98.0; Pulse Ox 99% ; Weight 79.38 kg / 175 lbs; elp Height 5 ft. 7 in. (170.18 cm); 20:30 BP 124 / 80; Pulse 70; Resp 18; Temp 96.6(T); Pulse Ox 99% on R/A; Pain 8/10; mlc 15:46 Body Mass Index 27.41 (79.38 kg, 170.18 cm) elp MDM: 18:07 NS 0.9% 1000 ml IV at 100 mL/hr continuous ordered. ke 18:07 Ondansetron 4 mg IVP once ordered. ke 18:07 ketorolac 30 mg IVP once ordered. ke 18:07 IV Saline Lock ordered. ke 18:07 Undress patient appropriately for examination ordered. ke 18:08 Amylase Ordered. EDMS 18:08 Basic Metabolic Profile Ordered. EDMS 18:08 CBC with Diff Ordered. EDMS 18:08 HCG,Serum Qualitative Ordered. EDMS 18:08 Lipase Ordered. EDMS 18:08 Liver Profile Ordered. EDMS 18:08 Prothrombin Time Profile\E\INR Ordered. EDMS 18:08 Urinalysis Ordered. EDMS 18:08 Urine Culture Ordered. EDMS 18:09 CT ABD & PELVIS: No Contrast Ordered. EDMS 18:09 NOTHING BY MOUTH+DIET ordered. EDMS 18:49 Financial registration complete. zo 18:53 CBC with Diff Reviewed. ke 18:53 Prothrombin Time Profile\E\INR Reviewed. ke 18:53 Urinalysis Reviewed. ke 18:53 Amylase Reviewed. ke 18:53 Basic Metabolic Profile Reviewed. ke 18:53 HCG,Serum Qualitative Reviewed. ke 18:53 Lipase Reviewed. ke 18:53 Liver Profile Reviewed. ke 18:55 Metoclopramide 10 mg IV at 40 mg/hr once over 15 mins ordered. ke 18:57 CT Head Without Contrast Ordered. EDMS 19:17 [facility] [place] Payment Agreement was scanned into [employer] and attached to record. zo 02/08 14:19 T-Sheet-- Draft Copy was scanned into [employer] and attached to record. gb Administered Medications: 08/18 18:19 Drug: NS 0.9% 1000 ml [sodium chloride 0.9 % intravenous solution] Route: IV; Rate: 100 mcp mL/hr; Site: right antecubital; 18:19 Drug: Ondansetron 4 mg [ondansetron HCl 2 mg/mL intravenous solution (2 mL)] Route: mcp IVP; Site: right antecubital; 18:19 Drug: ketorolac 30 mg [ketorolac 30 mg/mL (1 mL) injection solution (1 mL)] Route: IVP; mcp Site: right antecubital; 19:17 Drug: Metoclopramide 10 mg [metoclopramide 5 mg/mL injection solution] Route: IV; Rate: mlc 40 mg/hr; Infused Over: 15 mins; Site: right antecubital; Signatures: Dispatcher [employer] EDMS La Nena Castañeda, Reg Reg gb Vazquez Aparicio, PAINTER SUPERVISOR PAINTER SUPERVISORDenia Alvarenga,RN RN ck1 Eddy Gallagher Hannah, RN RN hs1 Brittani Hodge RN RN Marlene Lemon RN [facility] The chart was reviewed and I authenticate all verbal orders and agree with the evaluation and treatment provided.Attachments: 19:17 [facility] Payment Agreement zo 08/19 14:19 T-Sheet-- Draft Copy gb Chart Complete MTDD
--- NOTE | 2016-08-20 21:33 | EDDOCDS ---
Physician Documentation [facility] Name: Cathryn Swenson Age: 20 yrs Sex: Female : 1995 Arrival Date: 08/18/2016 Time: 15:45 Bed I1 / M1 Private MD: NO PRIMARY PHYSICIAN, . Disposition: 08/18/16 20:14 Discharged to Home/Self Care. Impression: Abdominal and pelvic pain. - Condition is Stable. - Discharge Instructions: Abdominal Pain, Adult. - Prescriptions for Naprosyn 500 mg Oral Tablet - take 1 tablet by ORAL route 2 times per day take with food; 30 tablet. Zofran 4 mg Oral Tablet - take 1 tablet by ORAL route 4 times per day As needed; 10 tablet. - Medication Reconciliation, Local Pharmacy Hours form. - [facility] up: [facility]; When: Call to arrange an appointment; Reason: Recheck today's complaints, Continuance of care. - Problem is an ongoing problem. - Symptoms are unchanged. Historical: - Allergies: no known allergies; - Home Meds: 1. none - PMHx: none; - Social history: Smoking status: Patient uses tobacco products, heavy tobacco smoker. No barriers to communication noted, The patient speaks fluent Samoan, Speaks appropriately for age. - Family history: Not pertinent. - : The pt / caregiver states he / she is not on anticoagulants. Home medication list is obtained from the patient. - Exposure Risk Screening:: None identified. NIPPLE MAKER: 08/18 16:08 LMP 08/13/2016 hs1 Vital Signs: 15:46 BP 135 / 72; Pulse 89; Resp 18; Temp 98.0; Pulse Ox 99% ; Weight 79.38 kg / 175 lbs; elp Height 5 ft. 7 in. (170.18 cm); 20:30 BP 124 / 80; Pulse 70; Resp 18; Temp 96.6(T); Pulse Ox 99% on R/A; Pain 8/10; mlc 15:46 Body Mass Index 27.41 (79.38 kg, 170.18 cm) elp MDM: 18:07 NS 0.9% 1000 ml IV at 100 mL/hr continuous ordered. ke 18:07 Ondansetron 4 mg IVP once ordered. ke 18:07 ketorolac 30 mg IVP once ordered. ke 18:07 IV Saline Lock ordered. ke 18:07 Undress patient appropriately for examination ordered. ke 18:08 Amylase Ordered. EDMS 18:08 Basic Metabolic Profile Ordered. EDMS 18:08 CBC with Diff Ordered. EDMS 18:08 HCG,Serum Qualitative Ordered. EDMS 18:08 Lipase Ordered. EDMS 18:08 Liver Profile Ordered. EDMS 18:08 Prothrombin Time Profile\E\INR Ordered. EDMS 18:08 Urinalysis Ordered. EDMS 18:08 Urine Culture Ordered. EDMS 18:09 CT ABD & PELVIS: No Contrast Ordered. EDMS 18:09 NOTHING BY MOUTH+DIET ordered. EDMS 18:49 Financial registration complete. zo 18:53 CBC with Diff Reviewed. ke 18:53 Prothrombin Time Profile\E\INR Reviewed. ke 18:53 Urinalysis Reviewed. ke 18:53 Amylase Reviewed. ke 18:53 Basic Metabolic Profile Reviewed. ke 18:53 HCG,Serum Qualitative Reviewed. ke 18:53 Lipase Reviewed. ke 18:53 Liver Profile Reviewed. ke 18:55 Metoclopramide 10 mg IV at 40 mg/hr once over 15 mins ordered. ke 18:57 CT Head Without Contrast Ordered. EDMS 19:17 [facility] [place] [place] Payment Agreement was scanned into [employer] and attached to record. zo 02/08 14:19 T-Sheet-- Draft Copy was scanned into [employer] and attached to record. gb Administered Medications: 08/18 18:19 Drug: NS 0.9% 1000 ml [sodium chloride 0.9 % intravenous solution] Route: IV; Rate: 100 mcp mL/hr; Site: right antecubital; 18:19 Drug: Ondansetron 4 mg [ondansetron HCl 2 mg/mL intravenous solution (2 mL)] Route: mcp IVP; Site: right antecubital; 18:19 Drug: ketorolac 30 mg [ketorolac 30 mg/mL (1 mL) injection solution (1 mL)] Route: IVP; mcp Site: right antecubital; 19:17 Drug: Metoclopramide 10 mg [metoclopramide 5 mg/mL injection solution] Route: IV; Rate: mlc 40 mg/hr; Infused Over: 15 mins; Site: right antecubital; Signatures: Dispatcher [employer] EDMS La Nena Castañeda, Reg Reg gb Vazquez Aparicio, DECORATOR INSPECTOR DECORATOR INSPECTORDenia Alvarenga,RN RN ck1 Eddy Gallagher Hannah, RN RN hs1 Brittani Hodge RN RN Marlene Lemon RN [facility] The chart was reviewed and I authenticate all verbal orders and agree with the evaluation and treatment provided.Attachments: 19:17 [facility] Payment Agreement zo 08/19 14:19 T-Sheet-- Draft Copy gb Chart Complete MTDD
== END 2016-08-18 20:32 | disposition home or self-care (01) ==
LOC: M ED 15:45
DX: R10.30 Lower abdominal pain, unspecified (principal); R11.0 Nausea; R19.7 Diarrhea, unspecified; F17.210 Nicotine dependence, cigarettes, uncomplicated
CPT/HCPCS: 36415; 70450; 74176; 80048; 80076; 81001; 82150; 83690; 84703; 85025; 85610; 87086; 96374; 96375; 99284; J1885; J2405; J2765

== ENCOUNTER 2016-09-29 11:17 | Emergency (ER) | payer BC, OTHER ==
[~2016-09-29] VITALS: Ht 170.2 cm; Wt 72.6 kg
[2016-09-29] MEDS ORDERED: LEVALBUTEROL 1.25 MG/0.5 ML CONCENTRATE NEB NEB ONE ×3 (12:15)
[2016-09-29] MEDS ORDERED: predniSONE 20 MG TAB PO ONE (12:15)
--- NOTE | 2016-09-29 13:36 | REP ---
Clinical: Acute cough . Comparison: None . Technique: PA and lateral. Findings: The mediastinum and cardiac silhouette are normal. The lung mast are clear and without acute consolidation, effusion, or pneumothorax. The skeletal structures are intact and normal. Impression: 1. No acute cardiopulmonary process. Signed by Theo Vo MD 09/29/2016 01:28 P
[2016-09-29] MEDS ORDERED: AZIT250T3 PO (13:47)
[2016-09-29] MEDS ORDERED: PRED20TA PO (13:49)
[2016-09-29] MEDS ORDERED: ALBU17IN INH (13:52)
[2016-09-29] MEDS ORDERED: MUCI600T34 PO (13:53)
[2016-09-29] MEDS ORDERED: AZITHROMYCIN 250 MG TAB PO ONE (14:00)
[2016-09-29 14:12] VITALS: BP 126/78
== END 2016-09-29 14:14 | disposition home or self-care (01) ==
LOC: M ED 12:54
DX: J01.90 Acute sinusitis, unspecified (principal); J20.9 Acute bronchitis, unspecified

== ENCOUNTER 2017-07-13 03:51 | Emergency (ER) | payer BC, OTHER ==
[2017-07-13] MEDS: predniSONE 20 MG TAB PO (04:30)
[2017-07-13] MEDS: IPRATROPIUM 0.5MG/ALBUTEROL 2.5MG INH SOL UD 3ML (DUONEB)(J7620) NEB (05:03)
== END 2017-07-13 06:18 | disposition home or self-care (01) ==
LOC: M ED 03:51
DX: J20.8 Acute bronchitis due to other specified organisms (principal); F17.200 Nicotine dependence, unspecified, uncomplicated
CPT/HCPCS: 94640

== ENCOUNTER 2018-10-31 12:49 | Emergency (ER) | payer BC, OTHER ==
[~2018-10-31] VITALS: Ht 170.2 cm; Wt 68.2 kg
[~2018-10-31 12:49] MED LIST: ALBU17IN INH; AZIT-12 PO; MUCI600T37 PO; PRED20TA PO; PROAAER10 INH
[2018-10-31] MEDS ORDERED: KEFL500C17 PO (14:37)
[2018-10-31 14:44] VITALS: BP 114/75
== END 2018-10-31 14:48 | disposition home or self-care (01) ==
LOC: M ED 12:49
DX: J02.0 Streptococcal pharyngitis (principal); H92.09 Otalgia, unspecified ear

== ENCOUNTER 2018-12-24 20:47 | Emergency (ER) | payer BC, OTHER ==
[~2018-12-24] VITALS: Ht 170.2 cm; Wt 75.9 kg
[~2018-12-24 20:47] MED LIST changes: +KEFL500C17 PO
[2018-12-24] MEDS ORDERED: NS 1,000 ML IV ONE (22:30)
[2018-12-24 22:37] LABS: BASO % 0.6 % (0.0-1.0); EOS # 0.2 10^3/uL (0.0-0.50); EOS % 3.2 % (0.0-3.0); HEMATOCRIT 39.9 % (36.0-47.0); HEMOGLOBIN 13.4 g/dl (12.0-15.5); LYMPH # 1.8 10^3/uL (1.5-6.5); LYMPH % 26.1 % (24.0-44.0); MEAN CORPUSCULAR HEMOGLOBIN 30.8 pg (27.0-33.0); MEAN CORPUSCULAR HGB CONC 33.6 g/dl (32.0-36.5); MEAN CORPUSCULAR VOLUME 91.7 fl (80.0-96.0); MONO # 0.7 10^3/uL (0.0-0.8); MONO % 9.8 % (0.0-5.0); NEUTROPHILS # 4.2 10^3/uL (1.8-7.7); NEUTROPHILS % 60.2 % (36.0-66.0); PLATELET COUNT, AUTOMATED 181 10^3/uL (150-450); RED BLOOD COUNT 4.35 10^6/uL (4.00-5.40); WHITE BLOOD COUNT 6.9 10^3/uL (4.0-10.0)
[2018-12-24 22:57] LABS: BLOOD UREA NITROGEN 18 MG/DL (7-18); CALCIUM LEVEL 8.7 MG/DL (8.5-10.1); CARBON DIOXIDE LEVEL 28 MEQ/L (21-32); CHLORIDE LEVEL 108 MEQ/L (98-107); CREATININE FOR GFR 0.95 MG/DL (0.55-1.30); GLOMERULAR FILTRATION RATE > 60.0 (>60); GLUCOSE, FASTING 88 MG/DL (70-100); POTASSIUM SERUM 3.4 MEQ/L (3.5-5.1); SODIUM LEVEL 142 MEQ/L (136-145)
[2018-12-24] MEDS ORDERED: POTASSIUM CHLORIDE 10 MEQ SR TABLET PO ONE (23:45)
[2018-12-24 23:50] VITALS: BP 113/61
--- NOTE | 2018-12-25 18:53 | ECGEPIP ---
[facility] - ED Test Date: 2018-12-24 Pat Name: SUSAN MOORE Department: Room: - Gender: Female Addiction Medicine Physician: JMichael : 1995 Requested By: HOLLI Pastrana PA-C Order Number: [id number] Reading MD: Bri Johnson Measurements Intervals [place] Rate: 62 P: 34 [place]: 176 QRS: 34 QRSD: 78 T: 44 QT: 401 QTc: 410 Interpretive Statements SINUS RHYTHM NO PRIOR FOR COMPARISON Electronically Signed on 12-25-2018 18:53:15 EDT by Bri Johnson
== END 2018-12-24 23:54 | disposition home or self-care (01) ==
LOC: M ED 20:47
DX: F41.9 Anxiety disorder, unspecified (principal); R06.4 Hyperventilation; E87.6 Hypokalemia; J45.909 Unspecified asthma, uncomplicated; Z77.098 Contact with and (suspected) exposure to other hazardous, chiefly nonmedicinal, chemicals

== ENCOUNTER 2019-02-08 13:12 | Emergency (ER) | payer BC, OTHER ==
[~2019-02-08] VITALS: Ht 170.2 cm; Wt 70.0 kg
--- NOTE | 2019-02-08 16:10 | REP ---
Clinical: thoracic pain. Technique: AP, lateral, and swimmers views. Findings: Alignment and kyphosis is maintained. Vertebral bodies intact. No acute fracture / compression injury or subluxation. No degenerative changes. Paravertebral soft tissues are normal. Impression: Normal thoracic spine series. Electronically Signed by Theo Vo MD 02/08/2019 04:02 P
--- NOTE | 2019-02-08 16:10 | REP ---
Clinical: Back pain . Technique: AP, lateral, bilateral oblique, and coned-down views. Findings: Alignment and lordosis is maintained. The vertebral bodies including transverse process and spinous processes are intact and normal. There is no evidence for acute fracture / compression injury or subluxation. No evidence for spondylolysis or spondylolisthesis. No significant degenerative change is noted. Impression: Normal lumbosacral spine radiograph series. Electronically Signed by Theo Vo MD 02/08/2019 04:03 P
[2019-02-08 16:39] VITALS: BP 107/70
== END 2019-02-08 16:41 | disposition home or self-care (01) ==
LOC: M ED 13:12
DX: S39.012A Strain of muscle, fascia and tendon of lower back, initial encounter (principal); X50.3XXA Overexertion from repetitive movements, initial encounter; Y92.89 Other specified places as the place of occurrence of the external cause; Y93.89 Activity, other specified; Y99.0 Civilian activity done for income or pay; J45.909 Unspecified asthma, uncomplicated

== ENCOUNTER 2019-03-09 14:26 | Emergency (ER) | payer BC ==
[~2019-03-09] VITALS: Ht 170.2 cm; Wt 74.5 kg
[2019-03-09 15:48] LABS: INR 0.99; PROTHROMBIN TIME 12.8 SECONDS (11.8-14.0)
[2019-03-09 15:49] LABS: PARTIAL THROMBOPLASTIN TIME 30.7 SECONDS (25.0-38.4)
[2019-03-09 15:51] LABS: D-DIMER QUANT 2140.62 ng/ml (<500)
[2019-03-09 16:05] LABS: HEMOGLOBIN 12.9 g/dl (12.0-15.5); MEAN CORPUSCULAR HGB CONC 33.1 g/dl (32.0-36.5); MEAN CORPUSCULAR VOLUME 93.8 fl (80.0-96.0); PLATELET COUNT, AUTOMATED 142 10^3/uL (150-450); RED BLOOD COUNT 4.16 10^6/uL (4.00-5.40); WHITE BLOOD COUNT 5.8 10^3/uL (4.0-10.0)
[2019-03-09 16:07] LABS: ALBUMIN 3.5 GM/DL (3.2-5.2); ALT/SGPT 16 U/L (12-78); BILIRUBIN,TOTAL 0.3 MG/DL (0.2-1.0); BLOOD UREA NITROGEN 9 MG/DL (7-18); CALCIUM LEVEL 8.1 MG/DL (8.5-10.1); CARBON DIOXIDE LEVEL 26 MEQ/L (21-32); CHLORIDE LEVEL 108 MEQ/L (98-107); CREATININE FOR GFR 0.89 MG/DL (0.55-1.30); FREE T4 1.12 NG/DL (0.76-1.46); GLOMERULAR FILTRATION RATE > 60.0 (>60); GLUCOSE, FASTING 97 MG/DL (70-100); HCG, SERUM QUANTITATIVE < 1.0 MIU/ML; POTASSIUM SERUM 3.6 MEQ/L (3.5-5.1); SODIUM LEVEL 140 MEQ/L (136-145); TOTAL PROTEIN 6.7 GM/DL (6.4-8.2)
[2019-03-09] MEDS ORDERED: ISOVUE-370 76% 100ML VIAL (Q9967) As Ordered ONE (16:33)
--- NOTE | 2019-03-09 16:51 | REP ---
Portable chest x-ray: Single view. History: Palpitations. Comparison chest x-ray: September 29, 2016. Findings: EKG monitoring electrodes overlie the chest. The heart is not enlarged. Pulmonary vasculature is not increased. Pleural angles are sharp. No infiltrate is seen. No bony abnormalities appreciated. Impression: Negative portable chest x-ray. Electronically Signed by Jluis Ventura MD 03/09/2019 04:43 P
[2019-03-09] MEDS ORDERED: Holter Monitor (17:48)
[2019-03-09 18:00] VITALS: BP 111/65
--- NOTE | 2019-03-09 18:35 | REP ---
The of the chest with IV contrast, CT pulmonary angiography protocol: There are no emboli in the pulmonary trunk or central pulmonary arteries. There are no emboli in the pulmonary lobe or segment branches. There are no infiltrates, effusions, masses or nodules. There is no mediastinal, hilar or axillary lymph enlargement. The thoracic aorta is unremarkable. Cardiac size is normal. There is no pericardial effusion. The visualized upper abdominal contents are unremarkable. Impression: There are no pulmonary emboli. Otherwise, essentially negative CT study of the chest. Electronically Signed by Amanuel Clinton MD 03/09/2019 06:26 P
--- NOTE | 2019-03-09 21:27 | ECGEPIP ---
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
== END 2019-03-09 18:23 | disposition home or self-care (01) ==
LOC: M ED 14:26
DX: R00.2 Palpitations (principal); J45.909 Unspecified asthma, uncomplicated; M54.9 Dorsalgia, unspecified
CPT/HCPCS: 71045; 71275; 80053; 84439; 84443; 84702; 85027; 85379; 85610; 85730; 93005; 99285; Q9967

== ENCOUNTER 2019-07-24 07:31 | Emergency (ER) | payer BC ==
[~2019-07-24] VITALS: Ht 170.2 cm; Wt 73.9 kg
[~2019-07-24 07:31] MED LIST changes: +Holter Monitor
[2019-07-24] MEDS ORDERED: NS 500 ML IV ONE (09:30)
[2019-07-24 10:11] LABS: BASO % 0.6 % (0.0-1.0); EOS # 0.1 10^3/uL (0.0-0.5); HEMATOCRIT 43.2 % (36.0-47.0); HEMOGLOBIN 13.9 g/dl (12.0-15.5); LYMPH % 19.9 % (24.0-44.0); MEAN CORPUSCULAR HEMOGLOBIN 29.9 pg (27.0-33.0); MEAN CORPUSCULAR HGB CONC 32.2 g/dl (32.0-36.5); MEAN CORPUSCULAR VOLUME 92.9 fl (80.0-96.0); MONO # 0.4 10^3/uL (0.0-0.8); MONO % 8.1 % (0.0-5.0); NEUTROPHILS # 3.6 10^3/uL (1.5-8.5); NEUTROPHILS % 70.2 % (36.0-66.0); PLATELET COUNT, AUTOMATED 149 10^3/uL (150-450); RED BLOOD COUNT 4.65 10^6/uL (4.00-5.40); WHITE BLOOD COUNT 5.2 10^3/uL (4.0-10.0)
[2019-07-24 12:08] VITALS: BP 112/74
[2019-07-26] MEDS ORDERED: XANA0.25 PO (19:13)
== END 2019-07-24 12:15 | disposition home or self-care (01) ==
LOC: M ED 07:31
DX: F41.1 Generalized anxiety disorder (principal); R53.83 Other fatigue; R11.2 Nausea with vomiting, unspecified; F17.210 Nicotine dependence, cigarettes, uncomplicated; Z79.899 Other long term (current) drug therapy

== ENCOUNTER 2019-07-27 18:59 | Emergency (ER) | payer BC ==
[~2019-07-27] VITALS: Ht 170.2 cm; Wt 73.8 kg
[~2019-07-27 18:59] MED LIST changes: +XANA0.25 PO
[2019-07-27 22:41] VITALS: BP 116/70
--- NOTE | 2019-07-28 01:16 | REP ---
Clinical: Cough and dyspnea . Comparison: 07/24/2019 . Technique: PA and lateral. Findings: The mediastinum and cardiac silhouette are normal. The lung mast are clear and without acute consolidation, effusion, or pneumothorax. The skeletal structures are intact and normal. Impression: 1. No acute cardiopulmonary process. Electronically Signed by Theo Vo MD 07/28/2019 01:07 A
== END 2019-07-27 23:20 | disposition home or self-care (01) ==
LOC: M ED 18:59
DX: F41.1 Generalized anxiety disorder (principal); Z79.899 Other long term (current) drug therapy

== ENCOUNTER → 2019-08-03 | Outpatient (CLI) | payer BC ==
[~2019-08-03] MED LIST changes: +ESCI10TA2; +HYDR-3363
[2019-08-03 14:19] LABS: BLOOD UREA NITROGEN 10 MG/DL (7-18); CALCIUM LEVEL 8.7 MG/DL (8.5-10.1); CARBON DIOXIDE LEVEL 29 MEQ/L (21-32); CHLORIDE LEVEL 106 MEQ/L (98-107); CREATININE FOR GFR 0.82 MG/DL (0.55-1.30); FREE T4 1.09 NG/DL (0.76-1.46); GLOMERULAR FILTRATION RATE > 60.0 (>60); GLUCOSE, FASTING 85 MG/DL (70-100); POTASSIUM SERUM 3.9 MEQ/L (3.5-5.1); SODIUM LEVEL 139 MEQ/L (136-145)
== END ==
LOC: M PLALAB 10:31
PROVIDERS: ATTEND Obstetrics & Gynecology
DX: Z13.29 Encounter for screening for other suspected endocrine disorder (principal); Z13.1 Encounter for screening for diabetes mellitus

== ENCOUNTER 2019-08-07 06:56 | Emergency (ER) | payer BC ==
[~2019-08-07] VITALS: Ht 170.2 cm; Wt 70.3 kg
[~2019-08-07 06:56] MED LIST changes: -ESCI10TA2; -HYDR-3363
[2019-08-07] MEDS ORDERED: ESCI10TA2 (07:05)
[2019-08-07] MEDS ORDERED: HYDR-3363 (07:05)
[2019-08-07 10:09] LABS: INFLUENZA A AMPLIFICATION NEGATIVE (NEGATIVE); INFLUENZA B AMPLIFICATION NEGATIVE (NEGATIVE)
[2019-08-07 10:34] VITALS: BP 100/56
== END 2019-08-07 10:34 | disposition home or self-care (01) ==
LOC: M ED 06:56
DX: F41.1 Generalized anxiety disorder (principal); F41.0 Panic disorder [episodic paroxysmal anxiety]

== ENCOUNTER 2021-12-16 19:02 | Emergency (ER) | payer BC, OTHER ==
[~2021-12-16] VITALS: Ht 170.2 cm; Wt 100.0 kg
[~2021-12-16 19:02] MED LIST changes: +ESCI10TA16; +HYDR-3363
[2021-12-16 19:03] VITALS: BP 122/76
[2021-12-16] MEDS ORDERED: PAXI10TA12 PO (19:18)
== END 2021-12-16 21:30 | disposition home or self-care (01) ==
LOC: M ED 19:02
DX: Z32.01 Encounter for pregnancy test, result positive (principal)

== ENCOUNTER → 2022-01-09 | Outpatient (REF) | payer OTHER ==
[~2022-01-09] MED LIST changes: +PAXI10TA12 PO
== END ==
LOC: M SFHCPLAZ 12:06
PROVIDERS: ATTEND Family Medicine
DX: Z53.9 Procedure and treatment not carried out, unspecified reason (principal)

== ENCOUNTER → 2022-02-04 | Outpatient (REF) | payer OTHER ==
[2022-02-04 16:40] LABS: HEMATOCRIT 38.2 % (36.0-47.0); HEMOGLOBIN 12.7 g/dl (12.0-15.5); MEAN CORPUSCULAR HEMOGLOBIN 30.1 pg (27.0-33.0); MEAN CORPUSCULAR HGB CONC 33.2 g/dl (32.0-36.5); MEAN CORPUSCULAR VOLUME 90.5 fl (80.0-96.0); PLATELET COUNT, AUTOMATED 151 10^3/uL (150-450); RED BLOOD COUNT 4.22 10^6/uL (4.00-5.40); WHITE BLOOD COUNT 6.2 10^3/uL (4.0-10.0)
[2022-02-04 18:46] LABS: HCG, SERUM QUANTITATIVE 98270 MIU/ML; HEPATITIS B SURFACE ANTIGEN NEGATIVE (NEGATIVE); HEPATITIS C VIRUS ABY INDEX < 0.0 INDEX (<0.8); HIV 1&2 SCREEN CENTAUR NEGATIVE (NEGATIVE)
== END ==
LOC: M LAB REF 16:15
PROVIDERS: ATTEND Obstetrics & Gynecology
DX: Z32.01 Encounter for pregnancy test, result positive (principal)

== ENCOUNTER → 2022-06-10 | Outpatient (CLI) | payer OTHER ==
[2022-06-10 17:04] LABS: HEMATOCRIT 32.8 % (36.0-47.0); HEMOGLOBIN 10.5 g/dl (12.0-15.5); MEAN CORPUSCULAR HEMOGLOBIN 30.7 pg (27.0-33.0); MEAN CORPUSCULAR VOLUME 95.9 fl (80.0-96.0); PLATELET COUNT, AUTOMATED 119 10^3/uL (150-450); RED BLOOD COUNT 3.42 10^6/uL (4.00-5.40); WHITE BLOOD COUNT 7.5 10^3/uL (4.0-10.0)
== END ==
LOC: M WUC 11:13
PROVIDERS: ATTEND Obstetrics & Gynecology
DX: Z34.02 Encounter for supervision of normal first pregnancy, second trimester (principal); Z3A.00 Weeks of gestation of pregnancy not specified

== ENCOUNTER → 2022-07-23 | Outpatient (REF) | payer OTHER ==
[~2022-07-23] MED LIST changes: -PAXI10TA12 PO; +PAXI10TA13 PO
== END ==
LOC: M LAB REF 16:36
PROVIDERS: ATTEND Obstetrics & Gynecology
DX: Z34.03 Encounter for supervision of normal first pregnancy, third trimester (principal)

== ENCOUNTER 2022-08-06 13:26 | Outpatient (CLI) | payer OTHER ==
[~2022-08-06] VITALS: Ht 170.2 cm; Wt 121.5 kg
[2022-08-06 13:55] VITALS: BP 128/74
[2022-08-06 14:31] VITALS: BP 119/66
[2022-08-06 15:01] VITALS: BP 109/70
[2022-08-06] MEDS ORDERED: PRENTAB9 PO (15:30)
[2022-08-06 15:33] VITALS: BP 118/72
[2022-08-06 15:40] LABS: APPEARANCE, URINE MANUAL CLEAR (CLEAR); BILIRUBIN, URINE MANUAL NEGATIVE (NEGATIVE); BLOOD URINE MANUAL NEGATIVE (NEGATIVE); COLOR, URINE MANUAL YELLOW (YELLOW); GLUCOSE, URINE (UA) MANUAL NEGATIVE (NEGATIVE); KETONE, URINE MANUAL NEGATIVE (NEGATIVE); NITRITE, URINE MANUAL NEGATIVE (NEGATIVE); PROTEIN, URINE MANUAL NEGATIVE (NEGATIVE); SPECIFIC GRAVITY,URINE MANUAL 1.015 (1.002-1.035); UROBILINOGEN, URINE MANUAL NORMAL (NORMAL)
[2022-08-06 15:42] LABS: LEUKOCYTE ESTERASE, URINE MAN TRACE (NEGATIVE)
[2022-08-06 16:01] LABS: BACTERIA, URINE SMALL AMOUNT; HYALINE CAST, URINE NONE SEEN /lpf (0-1); MUCUS, URINE SMALL AMOUNT (NEGATIVE); RBC, URINE 0-1 /hpf (0-3); SQUAMOUS EPITHELIAL CELL URINE SMALL AMOUNT /hpf (SMALL AMT)
== END 2022-08-06 16:07 | disposition home or self-care (01) ==
LOC: M LDO 13:26
PROVIDERS: ATTEND Obstetrics & Gynecology
DX: O26.893 Other specified pregnancy related conditions, third trimester (principal); R03.0 Elevated blood-pressure reading, without diagnosis of hypertension; Z3A.37 37 weeks gestation of pregnancy
CPT/HCPCS: 59025; 81000; G0463

== ENCOUNTER → 2022-09-01 | Outpatient (CLI) | payer OTHER ==
[~2022-09-01] MED LIST changes: +PRENTAB9 PO
== END ==
LOC: M RAD 12:17
PROVIDERS: ATTEND Obstetrics & Gynecology
DX: Z34.03 Encounter for supervision of normal first pregnancy, third trimester (principal)